=== PATIENT | female | born 1950 | race Caucasian/White ===

== ENCOUNTER 2016-11-08 13:10 | Inpatient (IN) | payer OTHER ==
--- NOTE | 2016-11-14 11:50 | HP ---
DATE OF CLINIC: 10/27/2016 PAUL SANDY : 1950 PLANNED PROCEDURE: Right Total Knee Arthroplasty DATE OF SURGERY: November 08, 2016 SURGEON: Rah Hartmann M.D. HISTORY OF PRESENT ILLNESS Lizzie Sandy is a 65 year old female. * Medication list reviewed with patient allergy list reviewed with patient. * Tried NSAIDS did a trial of meloxicam -but not currently taking any- just OTC tylenol * Tried Injections 08/09/15 w/ PCP * Has not tried Physical Therapy The patient is a 65-year-old female who has pain in her right knee which she rates as a 5/10. Rudy has recently diagnosed her with a right patellofemoral arthritis. She is here today to see how she is doing. At this point her knee pain did improve with the injection six weeks at the end of July however she continues to have pain. She has difficulty walking and she describes the pain medially as well as deep into her knee. Squatting is difficult for her. She denies any catching or locking in the knee. She would like to talk to me about potentially having a surgery which will improve her discomfort. She continues to want to be active and to walk on a more regular basis. She would like to talk to me about her options. She states that overall she thinks that she is in fairly good health and would like to have surgery before her quality of life would deteriorate. She is here today to discuss her options with me today. We discussed both operative and non-operative management including risks and benefits and she would like to proceed with right total knee arthroplasty and presents today preoperatively. REVIEW OF SYSTEMS: Health assessment intake form the patient. I also reviewed the problem list from Dr. Garcia's note. 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 CURRENT MEDICATION * Multivitamin Adult Tablet as directed 0 days, 0 refills * SUMAtriptan Succinate 25 MG Tablet as needed migraines, 0 days, 0 refills * Tylenol Extra Strength 500 MG Tablet as needed 0 days, 0 refills PAST MEDICAL/SURGICAL HISTORY Reported: Medical: History of Arthritis. Surgical / Procedural: Cholecystectomy and Thyroidectomy. SOCIAL HISTORY Behavioral: Never smoked. Smoking status: Never smoker. ALLERGIES * No Known Allergies FAMILY HISTORY 2 children living Osteoarthritis Mother and father Blood pressure mother Blood clots father PHYSICAL FINDINGS * Vitals taken 10/27/2016 02:01 pm BP-Sitting R 124/89 mmHg Pulse Rate-Sitting 100 bpm Temp-Oral 98.1 F Height 68 in Weight 222 lbs Body Mass Index 33.8 kg/m2 Body Surface Area 2.14 m2 Pain Level 5 General Appearance: * Well developed. * In no acute distress. Ears, Nose, Throat: * ENT: normal. Lungs: * Clear to auscultation. Cardiovascular: Heart Rate And Rhythm: * Normal. Abdomen: * Normal. Neurological: * Oriented to time, place, and person. Motor: * Dominant Hand = Right Hand. I examined the patient's right and left knees. The patient has crepitus in both knees, however the right one is more painful. This is more prevalent by the patella itself as well as mild amount of pain in the medial joint line. She points to the medial aspect of her leg which she describes as nonspecific swelling and pain especially when she gets up from a seated position. RIGHT KNEE: Knee General Appearance: non-specific medial-sided swelling. tender by her right patella Neurologic: Gross sensation to light touch was present in the distribution of DP/SPl nerves Vascular: 2+ PT pulse Motor: 5 out of 5 strength quad, EHL, TA, GA, peroneals Range of Motion AROM: 0-130 degrees PROM: 0-140 degrees Focused Exam Findings: Patella Pateller tilt: neutral Patella mild lateral border pain POSITIVE for audible crepitus Knee Joint Medial joint line: mild tender to touch Lateral joint line: non tender Stable to varus and valgus stress at 0 and 30 degrees LEFT KNEE: Knee General Appearance: no signs of contusion or scars Neurologic: Gross sensation to light touch was present in the distribution of DP/SP nerves Vascular:capillary refill less then 2 seconds is present Motor: 5 out of 5 strength quad, EHL, TA, GA, peroneals Range of Motion AROM: 5-115 degrees PROM: 0-125 degrees Focused Exam Findings: Patella Pateller tilt: neutral Patella non tender to touch POSITIVE for audible crepitus No pateller pain in the trochlear groove starting at 30 degree flexion Knee Joint Medial joint line: mildly tender Lateral joint line: non tender Stable to varus and valgus stress at 0 and 30 degrees IMAGING X-rays performed on September 20, 2016 demonstrate osteoarthritis of bilateral knees. There is progression since her last set of x-rays almost one year ago. There is moderate patellofemoral arthritis in both knees. There is more medial sided narrowing however radiographically the left knee has worse arthritis on the right side. The patient's [place] views demonstrates increased patellofemoral osteoarthritis and on the lateral view on the right the patient does have some findings of more significant patellofemoral arthritis versus the tibiofemoral perspective. ASSESSMENT Bilateral knee osteoarthritis. Pes anserine bursitis bilaterally. PREVIOUS TESTS * Test: URINALYSIS WITH MICROSCOPIC Report Date: 10/18/2016 EPITHELIAL CELL 0-1 WBC NEG GLUCOSE NEGATIVE BACTERIA 0 PH,URINE 5.0 SPEC. GRAVITY 1.025 KETONE NEGATIVE NITRITE NEGATIVE RBC 0-1 BLOOD 1+ BILIRUBIN NEGATIVE APPEARANCE CLEAR PROTEIN NEGATIVE COLOR YELLOW LEUK ESTERASE NEGATIVE UROBILINOGEN NORMAL * Test: CBC NO DIFF Report Date: 10/18/2016 WBC 7.5 10*3/mL RBC 4.55 10*6/uL MCH 29.9 pg MCHC 32.8 g/dL Low RDW 12.1 % MCV 91.2 fL PLATELET COUNT 311 10*3/mL HCT 41.5 % HGB 13.6 g/L * Test: PROTHROMBIN TIME Report Date: 10/18/2016 PROTIME 9.9 s INR 0.94 * Test: PARTIAL THROMBOPLASTIN TIME Report Date: 10/18/2016 APTT 24.6 s * Test: COMPREHENSIVE METABOLIC PANEL Report Date: 10/18/2016 ALT/SGPT 29 U/L ALBUMIN 3.9 g/dL ALB/GLOB RATIO 1.6 BUN 17 mg/dL BUN/CREAT RATIO 19 CALCIUM 9.2 mg/dL GLUCOSE 145 mg/dL High CREATININE 0.9 mg/dL SODIUM 140 meq/L POTASSIUM 3.9 meq/L CHLORIDE 106 meq/L CARBON DIOXIDE 26 meq/L ANION GAP 12 meq/L TOT PROTEIN 6.4 g/dL GLOBULIN 2.5 g/dL BILI,TOTAL 0.3 mg/dL AST/SGOT 18 U/L ALK PHOSPHATASE 74 U/L GFR 63 * Test: MRSA SCREEN Report Date: 10/19/2016 MRSA SCREEN NEGATIVE * Test: MSSA SCREEN Report Date: 10/19/2016 MSSA SCREEN NEGATIVE FOR STAPHYLOCOCCUS AUREUS THERAPY * Patient not eligible for fall risk assessment. PLAN * Unilateral primary osteoarthritis, right knee Physical Therapy: PT Fernando Rievra [phone] Instructions: Post-op Rehab Right TKA SX 11/08/16 *Needs to start PT the week of 11/13/16 * TBS PTNW Miguel OxyCONTIN 10 MG T12A, Take 1 tablet by mouth twice daily for baseline pain control, 10 days, 0 refills OxyCODONE HCl 5 MG TABS, Take 1-2 tablets by mouth every 4 hours as needed for severe breakthrough pain, 14 days, 0 refills TraMADol HCl 50 MG TABS, Take 1-2 tablets by mouth every 6 hours as needed for moderate breakthrough pain, 14 days, 0 refills * Total knee arthroplasty -Right CARE TEAM Gabriela Garcia MD [facility] SURGICAL CONSENT We have discussed surgical options including right TKA and non-operative management. The patient was counseled in detail regarding the diagnosis, treatment options available, prognosis of each treatment option and the potential risks and complications. The risks of surgery include, but are not limited to, anesthetic , neurovascular complications, pulmonary embolism, deep vein thrombosis, wound dehiscence, failure of any or all of the discussed procedures, infection of the joint or surrounding soft tissue, need for revision surgery, chronic pain, limitations in activities of daily living, inability to return to work, and loss of normal range of motion or functional use of the extremity. There is the possibility of failure over time that may require additional operative or non-operative treatment. The patient acknowledged that there are a number of perioperative risks not mentioned here and would still like to proceed. The patient is aware of and understands these risks, and wishes to proceed with the proposed surgical procedure and other procedures as indicated at the time of surgery. We will have the patient see their PCP for a preoperative medical risk assessment. The preoperative instructions were reviewed with the patient and all questions were answered. PB/sg
[2016-11-15] MEDS ORDERED: CEFAZOLIN SODIUM 2 GRAM PREMIX 100 ML IV PRN (09:15)
[2016-11-15] MEDS ORDERED: TRANEXAMIC ACID 1,000 MG in SODIUM CHLORIDE 0.9% 100 ML IV PRN (09:15)
[2016-11-15] MEDS ORDERED: BUPIVACAINE 0.25% (MDV) 24 ML, MORPHINE SULFATE 8 MG, EPINEPHRINE 0.3 MG in SODIUM CHLO... IF PRN (09:15)
[2016-11-15] MEDS ORDERED: BUPIVACAINE 0.25% (MDV) 20 ML in SODIUM CHLORIDE 0.9% FLUSH 20 ML IF PRN (09:15)
[2016-11-15] MEDS ORDERED: CLONIDINE HCL 0.1 MG/24 HR (7 DAY PATCH) TD SCH (09:15)
[2016-11-15] MEDS ORDERED: OXYCODONE HCL 10 MG TAB.SR PO ONE ×2 (09:15→10:03)
[2016-11-15] MEDS ORDERED: FAMOTIDINE 20 MG TABLET PO ONE (09:15)
[2016-11-15] MEDS ORDERED: ONDANSETRON 4 MG/2ML 2 ML VIAL IV ONE (09:15)
[2016-11-15] MEDS ORDERED: GABAPENTIN 600 MG TABLET PO ONE (09:15)
[2016-11-15] MEDS ORDERED: CELECOXIB 200 MG CAPSULE PO ONE (09:15)
[2016-11-15] MEDS ORDERED: POLYMYXIN B SULFATE 500,000 UNITS, BACITRACIN 25,000 UNITS in SODIUM CHLORIDE 3 L IRRIG... IR PRN (09:15)
[2016-11-15] MEDS ORDERED: TRAMADOL HCL 50 MG TABLET PO ONE (09:15)
[2016-11-15] MEDS ORDERED: IV START KIT ONE (10:03)
[2016-11-15] MEDS ORDERED: TRAMADOL HCL 50 MG TABLET ONE (10:03)
[2016-11-15] MEDS ORDERED: LACTATED RINGERS 1,000 ML ONE ×2 (10:03→12:04)
[2016-11-15] MEDS ORDERED: GABAPENTIN 600 MG TABLET ONE (10:04)
[2016-11-15] MEDS ORDERED: CELECOXIB 200 MG CAPSULE ONE (10:04)
[2016-11-15] MEDS ORDERED: ONDANSETRON 4 MG/2ML 2 ML VIAL ONE (10:04)
[2016-11-15] MEDS ORDERED: FAMOTIDINE 20 MG TABLET ONE (10:04)
[2016-11-15] MEDS ORDERED: CLONIDINE HCL 0.1 MG/24 HR (7 DAY PATCH) TD ONE (10:04)
[2016-11-15] MEDS ORDERED: ROPIVACAINE 0.5% 30 ML VIAL ONE (10:25)
[2016-11-15] MEDS ORDERED: DEXAMETHASONE SOD PHOS 4 MG/1 ML VIAL ONE (10:25)
[2016-11-15] MEDS ORDERED: KETAMINE HCL UD SYRINGE 100 MG/2 ML IV ONE ×2 (10:25→13:28)
[2016-11-15] MEDS ORDERED: PROPOFOL 40 ML IV ONE ×2 (10:25→13:28)
[2016-11-15] MEDS ORDERED: MIDAZOLAM HCL 5 MG/5 ML VIAL ONE ×3 (10:25→11:30)
[2016-11-15] MEDS ORDERED: FENTANYL 250 MCG/5 ML AMP ONE (10:25)
[2016-11-15] MEDS ORDERED: NERVE BLOCK PROCEDURAL TRAY 1 EACH ONE (11:10)
[2016-11-15] MEDS ORDERED: SPINAL PROCEDURAL TRAY 1 EACH ONE (11:10)
[2016-11-15] MEDS ORDERED: PROMETHAZINE HCL 25 MG/ML VIAL IM PRN (13:33)
[2016-11-15] MEDS ORDERED: ONDANSETRON 4 MG/2ML 2 ML VIAL IV PRN (13:33)
[2016-11-15] MEDS ORDERED: HYDROMORPHONE HCL 1 MG/ML SYRINGE IV PRN (13:33)
[2016-11-15] MEDS ORDERED: LACTATED RINGERS 1,000 ML IV SCH (13:45)
[2016-11-15] MEDS ORDERED: KETOROLAC TROMETHAMINE 30 MG/ML 1 ML VIAL ONE (13:50)
--- NOTE | 2016-11-15 14:15 | PCMBPN ---
Brief Post Op Note: Date of Procedure: 11/15/16 Start Time: 1230 Preoperative Diagnosis: 1. right knee osteoarthritis Postoperative Diagnosis: 1. Same Procedure: right total knee arthroplasty Surgeon: Rah Hartmann MD Assist: Wayne Cuenca PA-C Anesthesia: Anne Carroll Findings: as above Condition: stable to PACU Complications: none IV Fluids: 2100 mLs of LR Urine Output: 150 mLs Estimated Blood Loss: 500 mLs Tourniquet Time: 24 min at 300 mm Hg Specimens: none Implants: Depuy Attune 6PS femur, 5 RP tibia, 6mm hudson, 35 mm patella Drains: none Rah Hartmann MD
[2016-11-15] MEDS ORDERED: ON-Q PUMP/ROPIVACAINE 0.2% 450 ML ONE (14:22)
[2016-11-15] MEDS ORDERED: FENTANYL 100 MCG/2 ML VIAL ONE (15:04)
[2016-11-15] MEDS: ON-Q PUMP/ROPIVACAINE 0.2% 450 ML in PREMIX BAG 1 EACH NB PRN (15:05)
[2016-11-15] MEDS ORDERED: HYDROMORPHONE HCL 1 MG/ML SYRINGE ONE (15:05)
[2016-11-15] MEDS: FENTANYL 100 MCG/2 ML VIAL IV PRN ×2 (15:07→15:11)
[2016-11-15 15:18] VITALS: BMI 32.6
--- NOTE | 2016-11-15 15:43 | RAD ---
HISTORY: Postop right TKR COMPARISON: Films same back to 117 TECHNIQUE: two of the right knee FINDINGS: A total knee arthroplasty is present. Hardware is intact with out signs of failure or loosening. There is no fracture or dislocation. Post surgical change with skin keisha, subcutaneous gas and bandaging are present. IMPRESSION: Intact hardware without fracture or dislocation. Satisfactory postoperative exam.
[2016-11-15] MEDS ORDERED: TRAZODONE HCL 50 MG TABLET PO PRN (15:49)
[2016-11-15] MEDS ORDERED: CALCIUM CARBONATE 500 MG TAB.CHEW PO PRN (15:49)
[2016-11-15] MEDS: HYDROMORPHONE HCL 0.5 MG/0.5 ML SYRINGE IV PRN ×2 (16:33→21:28)
[2016-11-15] MEDS ORDERED: PUMP TUBING ONE (16:47)
[2016-11-15] MEDS ORDERED: SUMATRIPTAN SUCCINATE 100 MG PO PRN (17:06)
[2016-11-15] MEDS: D5 1/2NS with 20 mEq KCL 1,000 ML IV SCH (17:08)
[2016-11-15] MEDS: ACETAMINOPHEN 500 MG TABLET PO SCH ×2 (17:08→21:28)
[2016-11-15 17:52] LABS: HEMATOCRIT 38.9 % (37.0-47.0); HEMOGLOBIN 12.7 gm/l (12.0-16.0); MEAN CELL VOLUME 91.7 fl (81.0-99.0); MEAN CORPUSCULAR HGB CONC 32.6 g/dl (33.0-37.0); RED CELL DISTRIBUTION WIDTH 12.2 % (11.5-14.5)
[2016-11-15 18:05] LABS: CALCIUM 8.8 mg/dL (8.6-10.3)
--- NOTE | 2016-11-15 18:23 | RAD ---
CHEST-AP BEDSIDE COMPARISON: None HISTORY: Postop hypertension FINDINGS: Views: Frontal chest. Lungs: Heart and vessels: Normal Trachea and bronchi: Normal Mediastinum and kristi: Normal Costophrenic sulci: Normal Chest wall and bones: Normal Upper abdomen: Surgical clips in the right upper quadrant IMPRESSION: Negative one view chest.
--- NOTE | 2016-11-15 19:26 | CONS ---
PAUL SANDY [id number] DATE OF : 1950 DATE OF ADMISSION: 11/15/2016 DATE OF CONSULTATION: 11/15/2016 PRIMARY CARE PROVIDER: Dr. Gabriela Garcia CONSULTATION REQUESTED BY: Dr. Rah Hartmann REASON FOR CONSULTATION: Postoperative hypertension. HISTORY OF PRESENT ILLNESS: Ms. Sandy has long-standing osteoarthritis. She consulted with Dr. Hartmann and presented today for scheduled right total knee arthroplasty. She had surgery, was initially attempted under spinal anesthesia, but had to be converted to general anesthesia. No complications were noted. She received greater than 2 liters of lactated Ringer's during surgery. Estimated blood loss was 500 mL. Tourniquet time 24 minutes. She was revived and brought to Med-Surg where she had immediate complaints of right knee pain and has been medicated with opioids, but then was noted to have hypertension as high as 180/130 on automated check. She is somnolent, but rousable, and denies chest pain, dyspnea or nausea. She does report a headache, which is her typical daily migraine type headache, and she still complains of right knee pain. PREOPERATIVE REVIEW OF SYSTEMS: In the last couple of weeks, she has had daily headaches. No respiratory or cardiac symptoms. She has had diarrhea which was concluded to be due to anxiety over the impending surgery. She has had chronic knee pain. PAST MEDICAL HISTORY: 1. Depression and anxiety, treated with Viibryd. 2. Daily migraine headaches, treated with sumatriptan. 3. Diverticulosis. 4. Obesity, with a body mass index of 32.7. 5. Apparently Dr. Garcia's clinic notes mention hypertension in history, but neither the patient nor her say that she was ever diagnosed or treated for hypertension. PAST SURGICAL HISTORY: 1. Cholecystectomy. 2. Thyroidectomy. 3. Right total knee arthroplasty today. ALLERGIES: None known. MEDICATIONS: Prior to admission: 1. Viibryd 40 mg by mouth daily, last taken yesterday morning. 2. Sumatriptan 100 mg by mouth, which she has been taking pretty much daily for acute headaches. HABITS: No current or past tobacco. No alcohol use. SOCIAL HISTORY: She is and lives with her on [facility] in [place]. She is a homemaker. FAMILY HISTORY: Significant for hypertension in her mother. Osteoarthritis in her mother and father. PHYSICAL EXAMINATION: GENERAL: This is a somnolent, but rousable, 65-year-old. She does not appear in any acute distress. VITAL SIGNS: Manual blood pressure recheck is 170/90. Pulse rate 106. Oxygen saturation 99% on two liters oxygen by mask. HEENT: Head is atraumatic. Pupils are constricted, round and reactive. Oropharynx is moist. NECK: No jugular venous distention or bruits. CHEST: Clear to auscultation. HEART: Regular. No murmur appreciated. ABDOMEN: Obese, soft and nontender. Normal bowel tones. No organomegaly. EXTREMITIES: Good dorsalis pedis pulses. No edema. Right knee is dressed and in a cooling blanket. NEUROLOGIC: Somnolent, but rousable. No focal deficits. LABORATORIES: Preoperative labs on 10/18/2016; normal CBC, normal coags and normal chemistries, other than glucose elevated at 145. Nasal screening for Staph aureus was negative for both methicillin-resistant and methicillin-sensitive Staph aureus. EKG: Preoperative EKG on 09/28/2016; normal sinus rhythm. ASSESSMENT: Ms. Sandy is a 65-year-old status post right total knee arthroplasty. She has questionable postoperative hypertension. Initially this appeared to be a hypertensive crisis, but on manual recheck her blood pressure is not critical. She has underlying depression, anxiety and recurrent headaches, with frequent sumatriptan use. RECOMMENDATIONS: 1. Postoperative care per orthopedics. 2. Will check EKG, chest x-ray, chemistry profile, troponin and CBC at this time, and continue to monitor blood pressure. Consider treatment if she remains quite elevated, however, she is currently on a clonidine patch already. 3. Resume Viibryd, although I do not think hypertension is a withdrawal symptom. 4. Discontinue sumatriptan, as hypertension can be a result of frequent sumatriptan use. Thank you Dr. Hartmann for this consultation. The Hospitalist Service will follow.
[2016-11-15] MEDS: CEFAZOLIN SODIUM 2 GRAM DUPLEX 2 G in Premix (D5W) 50 ml 1 EACH IV SCH (20:27)
[2016-11-15] MEDS: KETOROLAC TROMETHAMINE 30 MG/ML 1 ML VIAL IV PRN (20:35)
[2016-11-15] MEDS: ONDANSETRON 4 MG/2ML 2 ML VIAL IV PRN (20:38)
[2016-11-15] MEDS: ASCORBIC ACID 500 MG TABLET PO SCH (21:34)
[2016-11-15] MEDS: DOCUSATE SODIUM 100 MG CAPSULE PO SCH (21:34)
[2016-11-15] MEDS: OXYCODONE HCL 10 MG TAB.SR PO SCH (22:38)
[2016-11-16] MEDS: ONDANSETRON 4 MG/2ML 2 ML VIAL IV PRN (00:08)
[2016-11-16] MEDS: D5 1/2NS with 20 mEq KCL 1,000 ML IV SCH ×2 (01:45→11:12)
[2016-11-16] MEDS: KETOROLAC TROMETHAMINE 30 MG/ML 1 ML VIAL IV PRN (03:25)
[2016-11-16] MEDS: ACETAMINOPHEN 500 MG TABLET PO SCH ×4 (04:18→21:20)
[2016-11-16] MEDS: CEFAZOLIN SODIUM 2 GRAM DUPLEX 2 G in Premix (D5W) 50 ml 1 EACH IV SCH (04:44)
[2016-11-16 07:04] LABS: HEMATOCRIT 34.4 % (37.0-47.0); HEMOGLOBIN 11.2 gm/l (12.0-16.0); MEAN CORPUSCULAR HEMOGLOBIN 29.6 pg (27.0-31.0); MEAN CORPUSCULAR HGB CONC 32.6 g/dl (33.0-37.0); RED CELL DISTRIBUTION WIDTH 12.1 % (11.5-14.5)
[2016-11-16] MEDS: OXYCODONE HCL 5 MG TABLET PO PRN ×2 (07:08→14:07)
[2016-11-16 07:18] LABS: CALCIUM 8.6 mg/dL (8.6-10.3)
--- NOTE | 2016-11-16 07:33 | PDOC43 ---
- Subjective Findings: Patient feeling some better this morning, had an episode of nausea and emesis but not currently feeling nauseated. Pain is controlled, patient feeling much less sleepy. No new complaints. Subjective: Reports Pain Tolerable, Denies Chest Pain, Denies Shortness of Breath - Objective Vital Signs Temperature 97.7 F 11/16/16 07:06 Pulse Rate 78 11/16/16 07:06 Respiratory Rate 18 11/16/16 07:06 Blood Pressure 138/75 11/16/16 07:06 O2 Saturation by Pulse Oximetry 99 11/16/16 07:06 Oxygen Delivery Method Room Air Oxygen Flow Rate 0 Laboratory 11/16/16 06:15 11/16/16 06:15 11/16/16 11/15/16 06:15 17:25 RBC 3.78 L MCHC 32.6 L 32.6 L Active Medication Orders Category Date Time Status Acetaminophen [Tylenol] Med 11/15/16 16:00 Active 1,000 mg PO Q6H Ascorbic Acid [Vitamin C] Med 11/15/16 21:00 Active 500 mg PO BID Aspirin (Enteric Coated) [Ecotrin] Med 11/16/16 09:00 Active 325 mg PO DAILY Bisacodyl [Dulcolax] Med 11/18/16 14:05 Active 10 mg DE DAILY PRN Calcium Carbonate [Tums] Med 11/15/16 15:49 Active 1,000 - 2,000 mg PO Q2H PRN D5 1/2NS with 20 mEq KCL [D51/2NS with 20 mEq KCL] 1, Med 11/15/16 15:49 Active 000 ml IV 125 mls/hr Docusate Sodium [Colace] Med 11/15/16 21:00 Active 100 mg PO BID Hydromorphone HCl [Dilaudid] Med 11/15/16 15:49 Active 0.5 mg IV Q1H PRN Hydroxyzine Pamoate [Vistaril] Med 11/15/16 15:49 Active 25 - 50 mg PO Q4H PRN Ketorolac Tromethamine [Toradol] Med 11/15/16 20:00 Active 30 mg IV Q6H PRN Magnesium Hydroxide [Milk of Magnesia] Med 11/16/16 14:05 Active 30 ml PO DAILY PRN Multivitamins [One-A-Day] Med 11/16/16 09:00 Active 1 tab PO DAILY On-Q Pump/Ropivacaine 0.2% 450 ml Med 11/15/16 13:33 Active Premix Bag [Premix Fluid] 1 each NB Q50H Ondansetron 4 mg/2ml Vial [Zofran] Med 11/15/16 15:49 Active 4 - 6 mg IV Q6H PRN Oxycodone HCl [Roxicodone] Med 11/15/16 15:49 Active 5 - 10 mg PO Q4H PRN Oxycodone Sr [Oxycontin] Med 11/15/16 21:00 Active 10 mg PO Q12HR Remove Patch Med 11/16/16 14:05 Once 1 each TD X1 ONE Sodium Chloride 0.9% Flush [Normal Saline 10ml Flush] Med 11/15/16 15:49 Active 10 - 50 ml IV PRN PRN Sodium Chloride 0.9% Flush [Normal Saline 10ml Flush] Med 11/15/16 17:00 Active 10 ml IV Q8HR Tramadol HCl [Ultram] Med 11/15/16 15:49 Active 50 mg PO Q6H PRN Trazodone HCl [Desyrel] Med 11/15/16 15:49 Active 25 mg PO BEDTIME PRN Vilazodone Hydrochloride [Viibryd] Med 11/15/16 17:15 Pending 40 mg PO DAILY Intake and Output 11/14/16 11/15/16 11/16/16 23:59 23:59 23:59 Intake Total 2600 1712 Output Total 975 600 Balance 1625 1112 General: Afebrile, No Acute Distress HEENT: EOMI Lungs: Normal Air Movement Abdomen: Soft Skin: Normal Color, Warm, Dry, Intact Neurological: Grossly Intact, Alert, Oriented x 4, Normal Speech Psych/Mental Status: Normal Affect, Normal Mood - Right Lower Extremity Incision: Dressing Clean/Dry/Intact, Well Approximated, Angie Intact, No Drainage Motor: Extensor Hallucis Longus: 5/5, Tibialis Anterior: 5/5, Gastrocnemius: 5/5 , Peroneals: 5/5, Quadriceps: 4/5 Gross Sensation to Light Touch: Present: Deep Peroneal Nerve, Superficial Peroneal Nerve, Medial Plantar Nerve, Lateral Plantar Nerve, Sural Nerve, Saphenous Nerve Capillary Refill: < 3 Seconds Motion: 0-60 - Problems (1) Status post total right knee replacement Status: AcuteAssessment/Plan: POD#1 R TKA 1. Physical Therapy: up today, ambulate, would love to go home today if she can clear PT 2. Pain Control: adequate on current multimodal treatment 3. DVT Prophylaxis: mechanical, ambulation, ASA 325 daily 4. Disposition: home today vs tomorrow 5. Medical Issues: hypertension resolving, nausea/emesis being treated with Zofran. Appreciate hospitalist assistance, patient appears stable. Rah Hartmann MD
--- NOTE | 2016-11-16 08:30 | PDOC43 ---
- Subjective Chief Complaint: s/p RTK arthroplasty by Dr. Hartmann 11/15 Awake and alert, denies dyspnea, faintness or chest pain. Mild pain in right knee. Had episode of vomiting this a.m. but feels better now. - Objective Vital Signs Temperature 97.7 F 11/16/16 07:06 Pulse Rate 78 11/16/16 07:06 Respiratory Rate 18 11/16/16 07:06 Blood Pressure 138/75 11/16/16 07:06 O2 Saturation by Pulse Oximetry 99 11/16/16 07:06 Oxygen Delivery Method Room Air Oxygen Flow Rate 0 Intake and Output 11/15/16 11/16/16 11/17/16 06:59 06:59 06:59 Intake Total 4312 Output Total 1575 Balance 2737 General: Alert, Oriented x3, Cooperative, No Acute Distress HEENT: Mucous membr. moist/pink Lungs: Clear to Auscultation Bilaterally Cardiovascular: Regular Rate and Rhythm, No Murmur Abdomen: Soft, Normal Bowel Sounds, No Tenderness, No Masses Extremities: Normal Pulses, No Edema Wound: Dressing Clean/Dry/Intact (on right knee) Neurological: Normal Speech Psych/Mental Status: Normal Mood Laboratory 11/16/16 06:15 11/16/16 06:15 11/16/16 11/15/16 06:15 17:25 RBC 3.78 L MCHC 32.6 L 32.6 L Current Medications: Current meds reviewed in EMR. - Problems: Assessment/Plan (1) Status post total right knee replacement Status: AcuteAssessment/Plan: Management per Dr. Hartmann, doing well. (2) HTN (hypertension), benign Status: AcuteAssessment/Plan: Acute post-operative HTN may have been due to pain, anxiety, anesthesia or chronic sumatriptan use. Now resolved. (3) Anxiety and depression Status: ChronicAssessment/Plan: stable (4) Obesity (BMI 30.0-34.9) Status: ChronicAssessment/Plan: complicates care of knee surgery (5) Acute blood loss anemia Status: AcuteAssessment/Plan: mild degree, asymptomatic, follow. 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 Sumatriptan stopped as it can cause HTN and daily use may cause headache. Patient counseled to discuss alternative treatment with Dr. Garcia. VTE Prophylaxis: ASA and mechanical Disposition: Home today or tomorrow per Dr. Hartmann and PT
[2016-11-16] MEDS ORDERED: REMOVE PATCH 1 EACH UNIT TD SCH (09:15)
[2016-11-16] MEDS: OXYCODONE HCL 10 MG TAB.SR PO SCH ×2 (09:54→21:20)
[2016-11-16] MEDS: MULTIVITAMINS 1 TAB TABLET PO SCH (09:54)
[2016-11-16] MEDS: ASCORBIC ACID 500 MG TABLET PO SCH ×2 (09:54→21:19)
[2016-11-16] MEDS: DOCUSATE SODIUM 100 MG CAPSULE PO SCH ×2 (09:54→21:20)
[2016-11-16] MEDS: ASPIRIN (ENTERIC COATED) 325 MG TABLET.EC PO SCH (09:55)
[2016-11-16] MEDS: VILAZODONE HYDROCHLORIDE 40 MG TABLET PO SCH ×2 (10:02→11:12)
[2016-11-16] MEDS: HYDROXYZINE PAMOATE 25 MG CAPSULE PO PRN (11:30)
[2016-11-16] MEDS ORDERED: MAGNESIUM HYDROXIDE 30 ML UDCUP PO PRN (14:05)
[2016-11-16] MEDS ORDERED: REMOVE PATCH 1 EACH UNIT TD ONE (14:05)
[2016-11-16] MEDS: TRAMADOL HCL 50 MG TABLET PO PRN (14:07)
[2016-11-16] MEDS: ON-Q PUMP/ROPIVACAINE 0.2% 450 ML in PREMIX BAG 1 EACH NB PRN (14:09)
[2016-11-17] MEDS: TRAMADOL HCL 50 MG TABLET PO PRN ×3 (01:29→13:11)
[2016-11-17] MEDS: ON-Q PUMP/ROPIVACAINE 0.2% 450 ML in PREMIX BAG 1 EACH NB PRN ×2 (04:06→10:00)
[2016-11-17] MEDS: ACETAMINOPHEN 500 MG TABLET PO SCH ×4 (04:06→15:49)
[2016-11-17 05:47] LABS: HEMATOCRIT 29.4 % (37.0-47.0); HEMOGLOBIN 9.4 gm/l (12.0-16.0)
[2016-11-17] MEDS: OXYCODONE HCL 5 MG TABLET PO PRN ×4 (07:20→14:37)
[2016-11-17] MEDS: HYDROXYZINE PAMOATE 25 MG CAPSULE PO PRN ×3 (08:54→15:49)
[2016-11-17] MEDS: OXYCODONE HCL 10 MG TAB.SR PO SCH (08:55)
[2016-11-17] MEDS: ASCORBIC ACID 500 MG TABLET PO SCH (08:59)
[2016-11-17] MEDS: ASPIRIN (ENTERIC COATED) 325 MG TABLET.EC PO SCH (09:00)
[2016-11-17] MEDS: MULTIVITAMINS 1 TAB TABLET PO SCH (09:00)
[2016-11-17] MEDS: DOCUSATE SODIUM 100 MG CAPSULE PO SCH (09:00)
[2016-11-17] MEDS: VILAZODONE HYDROCHLORIDE 40 MG TABLET PO SCH (09:06)
--- NOTE | 2016-11-17 09:52 | PDOC43 ---
- Subjective Subjective: Reports Pain Tolerable, Denies Flatus, Denies Chest Pain, Denies Shortness of Breath, Denies Nausea, Denies Vomiting, Denies Fever - Objective Vital Signs Temperature 98.9 F 11/17/16 07:00 Pulse Rate 98 11/17/16 07:00 Respiratory Rate 16 11/17/16 07:00 Blood Pressure 151/75 11/17/16 07:00 O2 Saturation by Pulse Oximetry 99 11/17/16 07:00 Oxygen Delivery Method Room Air Oxygen Flow Rate 0 Laboratory 11/17/16 05:30 11/16/16 06:15 Active Medication Orders Category Date Time Status Acetaminophen [Tylenol] Med 11/15/16 16:00 Active 1,000 mg PO Q6H Ascorbic Acid [Vitamin C] Med 11/15/16 21:00 Active 500 mg PO BID Aspirin (Enteric Coated) [Ecotrin] Med 11/16/16 09:00 Active 325 mg PO DAILY Bisacodyl [Dulcolax] Med 11/18/16 14:05 Active 10 mg UT DAILY PRN Calcium Carbonate [Tums] Med 11/15/16 15:49 Active 1,000 - 2,000 mg PO Q2H PRN Docusate Sodium [Colace] Med 11/15/16 21:00 Active 100 mg PO BID Hydromorphone HCl [Dilaudid] Med 11/15/16 15:49 Active 0.5 mg IV Q1H PRN Hydroxyzine Pamoate [Vistaril] Med 11/15/16 15:49 Active 25 - 50 mg PO Q4H PRN Magnesium Hydroxide [Milk of Magnesia] Med 11/16/16 14:05 Active 30 ml PO DAILY PRN Multivitamins [One-A-Day] Med 11/16/16 09:00 Active 1 tab PO DAILY On-Q Pump/Ropivacaine 0.2% 450 ml Med 11/15/16 13:33 Active Premix Bag [Premix Fluid] 1 each NB Q50H Ondansetron 4 mg/2ml Vial [Zofran] Med 11/15/16 15:49 Active 4 - 6 mg IV Q6H PRN Oxycodone HCl [Roxicodone] Med 11/15/16 15:49 Active 5 - 10 mg PO Q4H PRN Oxycodone Sr [Oxycontin] Med 11/15/16 21:00 Active 10 mg PO Q12HR Sodium Chloride 0.9% Flush [Normal Saline 10ml Flush] Med 11/15/16 15:49 Active 10 - 50 ml IV PRN PRN Sodium Chloride 0.9% Flush [Normal Saline 10ml Flush] Med 11/15/16 17:00 Active 10 ml IV Q8HR Tramadol HCl [Ultram] Med 11/15/16 15:49 Active 50 mg PO Q6H PRN Trazodone HCl [Desyrel] Med 11/15/16 15:49 Active 25 mg PO BEDTIME PRN Vilazodone Hydrochloride [Viibryd] Med 11/15/16 17:15 Active 40 mg PO DAILY Intake and Output 11/16/16 11/17/16 11/18/16 06:59 06:59 06:59 Intake Total 4312 1610 Output Total 1575 3700 Balance 4067 -0170 General: Afebrile, No Acute Distress Psych/Mental Status: Normal Affect, Normal Mood Peripheral Pulses: Right Posterior Tibialis: 3+/4+, Right Dorsalis Pedis: 3+/4+ - Right Lower Extremity Incision: Well Approximated, Angie Intact, No Drainage, No Erythema, No Rash Motor: Extensor Hallucis Longus: 5/5, Tibialis Anterior: 5/5, Gastrocnemius: 5/5 Gross Sensation to Light Touch: Present: Medial Plantar Nerve, Lateral Plantar Nerve, Sural Nerve, Saphenous Nerve Capillary Refill: < 3 Seconds - Problems (1) Status post total right knee replacement Status: AcuteAssessment/Plan: POD# 2 R TKA 1. Physical Therapy: up today, ambulate, scheduled to go home today, pending PT evaluation 2. Pain Control: experiencing increased pain today, but adequately controlled with current multimodal treatment 3. DVT Prophylaxis: mechanical, ambulation, ASA 325 daily 4. Disposition: home today 5. Medical Issues: hypertension resolving, no nausea/emesis today. Appreciate hospitalist assistance, patient appears stable Parth Maya DO
--- NOTE | 2016-11-17 10:48 | OP ---
Kasandra SANDY : 1950 [id number] DATE OF SURGERY: November 15, 2016 PREOPERATIVE DIAGNOSIS: Right knee osteoarthritis. POSTOPERATIVE DIAGNOSIS: Right knee osteoarthritis. PROCEDURE PERFORMED: RIGHT TOTAL KNEE ARTHROPLASTY. SURGEON: Rah Hartmann M.D. GAS TRANSFER OPERATOR: Jessee Cuenca P.A.-C. SPECIMENS: No material was sent to the laboratory. ESTIMATED BLOOD LOSS: 500 mL. INTRAVENOUS FLUIDS: 2100 mL of crystalloid. URINE OUTPUT: 150 mL. TOURNIQUET TIME: 24 minutes at 300 mmHg. IMPLANTS: DePuy Attune size 6 posterior stabilized femur, size 5 rotating platform tibia, 6 mm size 6 insert and a 35mm anatomic patella. DRAINS: No drains. INDICATIONS: This is a 65-year-old female with history and physical exam and radiographic findings consistent with right knee osteoarthritis. The patient has undergone a course of nonoperative measures without adequate relief of their symptoms. They desire definitive management in the form of a total knee arthroplasty. Risks, benefits and alternatives were discussed at length with the patient and they have elected to proceed. Preoperative clearances were performed and the patient was scheduled for surgery at the first available convenience. DESCRIPTION OF PROCEDURE: The patient was identified in the preoperative holding area where they were marked with indelible marker by the operating surgeon. The patient underwent ultrasound guided adductor canal block by the anesthesia provider. Patient was then taken to the operating room where they underwent a spinal anesthetic and was positioned supine on the operating room table. All bony prominences were padded and a well padded pre-calibrated nonsterile tourniquet was placed on the right upper thigh. Patient received perioperative antibiotics. The patient was prepped and draped in the usual sterile fashion for surgery. An operative time out was performed and confirmed by all members of the operative team. The leg was elevated and exsanguinated using an Esmarch bandage and the tourniquet was inflated at 300 mmHg. A standard anterior approach to the knee was utilized. Dissection was carried down to the fascia overlying the quadriceps and patellar tendons. A medial peripatellar arthrotomy was created. The infrapatellar and suprapatellar fat pads were excised along with medial and lateral menisci and the ACL and PCL. At this point the tourniquet was deflated. Retractors were placed to protect the collateral ligaments and the patella was slid laterally. The trans-epicondylar axis and Whitesides line were drawn on the end of the femur and a drill was used to gain access to the intramedullary space of the distal femur. A guide arden was placed into the intramedullary canal and the guide was set to 5 degrees of valgus and a 9 mm resection.the distal femoral cutting guide was pinned in place with these settings. A week was used to check our resection levels and we were satisfied. We made our distal femoral cut. The knee was hyperflexed and the Tarlow retractor was placed to deliver the tibia from under the femur. The extramedullary tibia alignment guide was placed with 5 degrees of posterior slope and the proximal tibial resection guide was pinned in place with a 10 mm resection from the high side which was the lateral side. The alignment and resection levels were double checked and the proximal tibial resection was made with the oscillating saw and completed with an osteotome and the proximal tibial resection piece was excised from the knee. At this point the retractors were removed and the knee was taken into extension and our extension block was checked and found to be satisfactory with a 6 mm hudson. We returned our attention to the femur, placing the gap balancing block on an intramedullary guide arden sizing the distal femur to a size 6 and extending the gap accountant tax to a size 6 with a 6 mm hudson. We drilled the holes through the gap accountant tax and then replaced this with a 4-in-1 cutting block. We double checked our appointment and were satisfied with the balance and alignment. Anterior, posterior and chamfer cuts were made and all bony pieces were excised. The knee was taken into hyperflexion and posterior osteophytes were removed using an osteotome and a curette. Finally, the tibia was sized with a base plate, drilled and punched and then a trial tibia was placed. The box cut guide for the femur was pinned in place and our box cut for the posterior stabilized femoral component was made and then a trial femur was placed. The trial 6 mm insert was placed and the knee was taken through a range of motion. It was found to be stable in all planes and to have appropriate extension and flexion. The patella was everted and held with two towel clips. Its thickness was measured to 24 mm initially. It was resected back using a freehand technique to 14 mm thick and sized for a 35 mm patellar button. The knee was taken through a range of motion. The patella was found to track midline with a no hands technique. At this point all trial implants were removed from the knee. The posterior capsule was inspected and it was confirmed that there were no significant bleeders. Then knee was elevated and exsanguinated using an Esmarch bandage and the tourniquet was reinflated. Cement was mixed on the back table while we performed our first posterior capsular injection and then copiously irrigated the bony surfaces with sterile saline. Our final implants were cemented in place and all excess cement was removed from the knee. The knee was held in extension with a clamp on the patella while the cement dried. A final inspection was made of the knee after the cement was dry and the tourniquet was deflated. There were no significant bleeders and no residual cement or bony bodies within the knee. The knee was once again copiously irrigated with sterile saline and then a closure was performed using #0 Quill for the capsule, #2-0 Vicryl for the subcutaneous tissues and keisha in the skin. A sterile dressing of Xeroform, fluffs, ABD's, web roll and an KAELA bandage was applied. The drapes were removed. The patient was awakened from anesthesia. Patient was then transferred to a stretcher and taken postoperatively to the post anesthesia care unit in stable condition. There were no observed intraoperative complications during this procedure. Job [id number] Cc: [facility] [employer] [facility]
[2016-11-17 13:26] VITALS: BP 152/83
[2016-11-18] MEDS ORDERED: BISACODYL 10 MG SUP PR PRN (14:05)
--- NOTE | 2016-12-18 18:23 | PDOC5 ---
ADMIT DATE: 11/15/16 DISCHARGE DATE: 11/17/16 ADMISSION DIAGNOSES: right knee osteoarthritis PROCEDURES PERFORMED THIS HOSPITALIZATION: right total knee arthroplasty SURGEON:Rah Hartmann MD CONSULTATIONS: PT/OT/Care Mgmt/Hospitalist BRIEF HISTORY:This is a 66 year old female patient with activity-limiting right knee osteoarthritis which has failed to respond adequately to a course of nonoperative measures. After a discussion of the risks, benefits, and alternatives of ongoing therapies, patient elected to proceed with right total knee arthroplasty. The patient underwent standard preoperative clearance and education, and presented to the hospital on the scheduled date for surgery. BRIEF HOSPITAL COURSE: Patient tolerated the procedure without complication and was admitted postoperatively for observation, pain control, and rehabilitation. Patient had an uncomplicated hospital course; see daily notes for details. On POD#2 patient met all criteria for discharge and was discharged home with family assistance. Follow-up appointments for outpatient Physical Therapy and Orthopedics were provided at the time of discharge. Patient restarted preoperative medications, and received prescriptions for postoperative pain medications, a stool softener, and DVT prophylaxis. Rah Hartmann MD - Discharge Diagnosis (1) Status post total right knee replacement Status: Acute - Discharge Plan Disposition: Home Additional Instructions: PROCEDURE: Right total knee arthroplasty (replacement) 1.) Dressings: may remove dressings on POD#4 and shower normally, let water run over incision and pat dry, but do not submerge or scrub incision. Cover with clean dressing and then change dressing every 2 days until completely dry. 2.) Activity: may bear weight as tolerated with assistive device as needed. Outpatient PT as previously scheduled. Daily exercises as instructed by PT. 3.) Medications: a.) Oxycontin: long-acting pain medication taken morning and evening for 10 days, no refills b.) Tramadol: as-needed pain medication for mild to moderate breakthrough pain (call for refills 3-4 days before running out) c.) Oxycodone: as-needed pain medication for severe breakthrough pain (call for refills 3-4 days before running out) d.) Aspirin: blood thinner to reduce risk of clots, 325 mg taken daily for 30 days e.) Colace: stool softener to help prevent constipation, taken twice a day as long as you are on narcotics; if you have not had a bowel movement by Sunday , get [id number] Magnesium Citrate from [facility] or [facility], and use per instructions twice a day until constipation resolves. 4.) Followup: You have an appointment with Wayne Cuenca PA-C, on November 21 at 3:00 PM at [facility]. Call [phone] to confirm time and location. 5.) Questions: call my office with any questions or concerns. Go to ED or call 911 for any acute changes in health status or emergencies. Rah Hartmann MD Prescriptions: Hydroxyzine Pamoate [VISTARIL 25 MG CAPSULE (SHF)] 25 mg PO Q4H PRN #10 PRN Reason: Itching/Anxiety Ondansetron ODT [ZOFRAN ODT 4 MG TABLET (SHF)] 4 mg PO Q4-6H PRN #20 tab.rapdis PRN Reason: Nausea/Vomiting Follow-Up: PT Miguel King [Other] - 11/23/16 12:00 pm Jessee Cuenca PA [[address]] - 11/27/16 3:00 pm
== END 2016-11-17 16:19 | disposition home or self-care (01) | DRG 470 ==
LOC: OR 11-15 09:12 → MS 11-15 15:56
PROVIDERS: ADMIT Orthopaedic Surgery; ATTEND Orthopaedic Surgery
PROC: 0SRC0J9 Replacement of Right Knee Joint with Synthetic Substitute, Cemented, Open Approach (ICD-10-PCS; principal; 2016-11-15)
DX: M17.11 Unilateral primary osteoarthritis, right knee (principal); F32.9 Major depressive disorder, single episode, unspecified; F41.9 Anxiety disorder, unspecified; I97.3 Postprocedural hypertension; R51 Headache; K57.90 Diverticulosis of intestine, part unspecified, without perforation or abscess without bleeding; E66.9 Obesity, unspecified; Z68.32 Body mass index [BMI] 32.0-32.9, adult